=== PATIENT | female | born 1965 | race Caucasian/White ===

== ENCOUNTER 2022-03-03 12:37 | Emergency (ER) | payer OTHER ==
[~2022-03-03] VITALS: Ht 157.5 cm; Wt 81.6 kg
[2022-03-03 12:39] VITALS: BP 190/116
--- NOTE | 2022-03-03 12:52 | NUR ---
Triston telles in [facility] - 03/03/22 at 1254 by [email or web address] PT AMB TO BED 3.
--- NOTE | 2022-03-03 13:17 | NUR ---
PT AMB TO BED 6.
[2022-03-03] MEDS ORDERED: TETRACAINE HCL/PF 0.5% OPTH 4 ML BTL OP ONE (13:25)
--- NOTE | 2022-03-03 13:28 | NUR ---
56 Y/O FEMALE C/O RIGHT EYE PAIN, REDNESS, RIGHT EYELID SWELLING X TODAY. DENIES TRAUMA/INJURY. PT DENIES BLURRY VISION. PT DENIES CHEST PAIN, SOB. PT DENIES FEVER OR CHILLS. PT IS ALERT AND ORIENTED X4. BED IN LOWEST POSII BP 190/116 AT THIS TIME. PMH: HTN, HLD, DEPRESSION
[2022-03-03] MEDS ORDERED: TOMOMETER 1 DEV DEV MC ONE (13:37)
[2022-03-03 14:00] VITALS: BP 190/116
--- NOTE | 2022-03-03 14:01 | NUR ---
Patient discharged with v/s stable. Written and verbal after care instructions given and explained. Patient verbalized understanding. Ambulatory with steady gait. All questions addressed prior to discharge. Advised to follow up with PMD.
== END 2022-03-03 14:01 | disposition home or self-care (01) ==
LOC: MED 12:37
DX: H11.31 Conjunctival hemorrhage, right eye (principal); I10 Essential (primary) hypertension
CPT/HCPCS: 99283